=== PATIENT | male | born 1970 | race Caucasian/White ===

== ENCOUNTER → 2022-11-02 | Outpatient (CLI) | payer SELFPAY ==
--- NOTE | 2022-11-02 10:21 | STE_ITS ---
Reason For Study: Chest Pain Stress Results Protocol: Stress Echocardiogram-Uriel Protocol Maximum Predicted HR: 166 bpm Target HR: 141 bpm % Maximum Predicted HR: 96 % Heart Stage Duration Rate BP Comment (mm:ss) (bpm) Patient denies chest pain. Dr. Leslie notified of elevated blood Baseline 64 156/104pressure. Stage 1 3:00 92 160/88 Patient denies chest pain. Stage 2 3:00 107 178/92 Patient denies chest pain. Stage 3 3:00 133 204/100Patient denies chest pain. Stage 4 1:25 160 / Shortness of breath and fatigue. Denies chest pain. Recovery 96 162/98 Patient denies chest pain. Stress Duration: 10:25 mm:ss Maximum Stress HR: 160 bpm Baseline Echocardiogram Findings Stress Echo Wall motion Data Resting WM Intermediate WM Stress WM ECHO/Stress Test Echo w/o Contrast Interpretation Summary Exercise stress echo. 52-year-old male with a history of anxiety hypertension and family history. Resting EKG demonstrates normal sinus rhythm with a rate of 64 bpm normal inter vals are noted resting blood pressure is 156/104 mmHg. The patient exercised according to [facility]riel protocol for 10 minutes and 25 seconds. The maximum heart rate attained was 164 bpm whic h was 98% of maximum predicted heart rate the maximum workload was 13.4 metabolic equivalents[address] At re st and during exercise there were no ST or T wave changes noted to suggest ischemia and at pe ak exercise no ischemic changes were noted. There was normal blood pressure response to exerci se. The rate-pressure product was 26,724. The test was terminated due to the target heart rate being achieved. Resting and stress echocardiogram. The resting echocardiogram demonstrated an ejection fraction approximately 55% with no wall motion abnormalities noted grossly structurally normal valves were noted. At peak exer cise there appeared to be thickening of all horne in all chambers. The peak ejection fraction was 6 5% with no wall motion abnormalities present. Conclusion: Normal exercise stress echo with no evidence of ischemia at a high workload. Hypertension noted at rest and with exercise. Ordering Physician: Jose De Jesus Leslie Referring Physician: Jose De Jesus Leslie Performed By: Danya Argueta RCS
== END | disposition home or self-care (01) ==
LOC: CVS 10:20
PROVIDERS: PCP Family Medicine; Referring Provider Internal Medicine Cardiovascular Disease; Visit Provider Internal Medicine Cardiovascular Disease
DX: I10 Essential (primary) hypertension (principal); R07.9 Chest pain, unspecified
CPT/HCPCS: 93017; 93350